=== PATIENT | female | born 1970 | race African-American/Black ===

== ENCOUNTER 2022-04-16 15:23 | Emergency (ER) | payer MEDICAID ==
[~2022-04-16] VITALS: Ht 170.2 cm; Wt 104.0 kg
[2022-04-16 15:41] VITALS: BP 133/75
[2022-04-16] MEDS ORDERED: TRAM-297 PO (20:41)
[2022-04-16] MEDS ORDERED: traMADol HCL 50 MG TAB PO ONE (20:45)
== END 2022-04-16 23:10 | disposition left against medical advice (07) ==
LOC: ER 15:29
DX: M79.605 Pain in left leg (principal); M79.604 Pain in right leg; M25.512 Pain in left shoulder; Z79.899 Other long term (current) drug therapy
CPT/HCPCS: 73030; 73562